=== PATIENT | female | born 1955 | race Caucasian/White ===

== ENCOUNTER 2020-12-18 11:11 | Emergency (ER) | payer OTHER ==
--- NOTE | 2020-12-18 12:16 | ER ---
Nurse's Notes [facility] Name: Jenifer Marinelli Age: 65 yrs Sex: Female : 1955 Arrival Date: 12/18/2020 Time: 11:13 Bed 23 Private MD: Diagnosis: Conjunctivitis Presentation: 12/18 11:26 Chief complaint: Patient states: my eyes have been bothering for a couple days, woke up iw this morning with crusting, feels like pink eye. Coronavirus screen: At this time, the client does not indicate any symptoms associated with coronavirus-19. Ebola Screen: Patient negative for fever greater than or equal to 101.5 degrees Fahrenheit, and additional compatible Ebola Virus Disease symptoms Patient denies exposure to infectious person. Patient denies travel to an Ebola-affected area in the 21 days before illness onset. No symptoms or risks identified at this time. Initial Sepsis Screen: Does the patient meet any 2 criteria? No. Patient's initial sepsis screen is negative. Does the patient have a suspected source of infection? No. Patient's initial sepsis screen is negative. Risk Assessment: Do you want to hurt yourself or someone else? Patient reports no desire to harm self or others. Onset of symptoms was December 16, 2020. 11:26 Method Of Arrival: Ambulatory iw 11:26 Acuity: FATOUMATA 4 iw Triage Assessment: 12:10 General: Appears in no apparent distress. Behavior is calm. iw Historical: - Allergies: 11:28 PENICILLINS; iw - Home Meds: 11:28 Trazodone Oral [Active]; Lamictal Oral [Active]; Wellbutrin Oral [Active]; iw - PMHx: 11:28 Hypertension; Depression; Anxiety; breast cancer; iw - PSHx: 11:28 Lumpectomy; iw - Immunization history:: Adult Immunizations up to date. - Social history:: Smoking status: Patient denies any tobacco usage or history of. Screenin:00 Abuse screen: Denies threats or abuse. Denies injuries from another. Nutritional iw screening: No deficits noted. Tuberculosis screening: No symptoms or risk factors identified. Fall Risk None identified. Assessment: 12:00 General: Appears in no apparent distress. Behavior is calm, cooperative. Pain: iw Complains of pain in right eye and left eye. Neuro: Level of Consciousness is awake, alert, obeys commands, Oriented to person, place, time, situation, Moves all extremities. Full function. Cardiovascular: Patient's skin is warm and dry. Respiratory: Respiratory effort is even, unlabored, Respiratory pattern is regular, symmetrical. EENT: Eyes with exudate noted from outer aspect of conjuctiva of right eye, iris of right eye, inner aspect of conjuctiva of right eye, outer aspect of conjuctiva of left eye, iris of left eye and inner aspect of conjunctiva of left eye. Derm: Skin is healthy with good turgor. Musculoskeletal: Range of motion: intact in all extremities. Vital Signs: 11:26 BP 132 / 83; Pulse 85; Resp 16; Temp 98.4; Pulse Ox 98% on R/A; Weight 68.04 kg; Height iw 5 ft. 4 in. (162.56 cm); 11:26 Body Mass Index 25.75 (68.04 kg, 162.56 cm) iw ED Course: 11:13 Patient arrived in ED. ag5 11:27 Triage completed. iw 11:28 Samia Miguel FNP-C is [facility]. kb 11:28 Jorge Youssef MD is Attending Physician. kb 11:50 Yane Rosa, ALYSSA is Primary Nurse. iw 12:00 Arm band placed on right wrist. iw 12:00 Patient has correct armband on for positive identification. iw 12:27 No provider procedures requiring assistance completed. Patient did not have IV access iw during this emergency room visit. Administered Medications: No medications were administered Outcome: 12:16 Discharge ordered by MD. kb 12:27 Discharged to home ambulatory. iw 12:27 Condition: good 12:27 Discharge instructions given to patient, Instructed on discharge instructions, follow up and referral plans. medication usage, Demonstrated understanding of instructions, follow-up care, medications, Prescriptions given X 1. 12:28 Patient left the ED. iw Signatures: Samia Miguel FNP-C FNP-Yane Bailey, RN RN Lita Aragon ag5
--- NOTE | 2020-12-18 12:16 | EDPHYS ---
Physician Documentation [facility] Name: Jenifer Marinelli Age: 65 yrs Sex: Female : 1955 Arrival Date: 12/18/2020 Time: 11:13 Bed 23 Private MD: ED Physician Jorge Youssef HPI: 12/18 12:14 This 65 yrs old Female presents to ER via Ambulatory with complaints of kb Redness of Eye, Eye Problem. 12:14 The patient is experiencing matting or discharge, redness, The patient sustained None. kb to both eyes, caused by an unknown mechanism. Onset: The symptoms/episode began/occurred 2 day(s) ago. Duration: the symptoms are continuous. Aggravated by nothing. Alleviated by eye drops. Associated signs and symptoms: Pertinent positives: None. Patient wears glasses, wears soft contacts. Severity of symptoms: At their worst the symptoms were mild in the emergency department the symptoms have improved moderately. The patient has experienced similar episodes in the past, a few times. The patient has not recently seen a physician. Pt reports she started getting pink eye in left eye, then right eye. Reports irritation, itching, redness, discharge and crusting this morning. Pt had some polymyxin eye drops at home so she started those and it has helped the symptoms. States she has had pink eye a few times before and it feels the exact same way. Historical: - Allergies: 11:28 PENICILLINS; iw - Home Meds: 11:28 Trazodone Oral [Active]; Lamictal Oral [Active]; Wellbutrin Oral [Active]; iw - PMHx: 11:28 Hypertension; Depression; Anxiety; breast cancer; iw - PSHx: 11:28 Lumpectomy; iw - Immunization history:: Adult Immunizations up to date. - Social history:: Smoking status: Patient denies any tobacco usage or history of. ROS: 12:09 Constitutional: Negative for fever, chills, and weight loss, Cardiovascular: Negative kb for chest pain, palpitations, and edema, Respiratory: Negative for shortness of breath, cough, wheezing, and pleuritic chest pain, Abdomen/GI: Negative for abdominal pain, nausea, vomiting, diarrhea, and constipation, MS/Extremity: Negative for injury and deformity, Skin: Negative for injury, rash, and discoloration, Neuro: Negative for headache, weakness, numbness, tingling, and seizure. 12:09 Eyes: Positive for itching, matting, redness. Exam: 12:13 Constitutional: This is a well developed, well nourished patient who is awake, alert, kb and in no acute distress. Head/Face: Normocephalic, atraumatic. Skin: Warm, dry with normal turgor. Normal color with no rashes, no lesions, and no evidence of cellulitis. MS/ Extremity: Pulses equal, no cyanosis. Neurovascular intact. Full, normal range of motion. Neuro: Awake and alert, GCS 15, oriented to person, place, time, and situation. Cranial nerves II-XII grossly intact. Motor strength 5/5 in all extremities. Sensory grossly intact. Cerebellar exam normal. Normal gait. 12:13 Eyes: Periorbital structures: appear normal, Pupils: equal, round, and reactive to light and accomodation, Extraocular movements: intact throughout, Conjunctiva: injected, in the right eye. Vital Signs: 11:26 BP 132 / 83; Pulse 85; Resp 16; Temp 98.4; Pulse Ox 98% on R/A; Weight 68.04 kg; Height iw 5 ft. 4 in. (162.56 cm); 11:26 Body Mass Index 25.75 (68.04 kg, 162.56 cm) iw MDM: 11:54 Patient medically screened. kb 12:08 Data reviewed: vital signs, nurses notes. Data interpreted: Pulse oximetry: on room air kb is 98 %. Interpretation: normal. Counseling: I had a detailed discussion with the patient and/or guardian regarding: the historical points, exam findings, and any diagnostic results supporting the discharge/admit diagnosis, the need for outpatient follow up, an opthalmologist, to return to the emergency department if symptoms worsen or persist or if there are any questions or concerns that arise at home. Administered Medications: No medications were administered Disposition: 17:31 Co-signature as Attending Physician, Jorge Youssef MD I agree with the assessment and kdr plan of care. Disposition: 12/18/20 12:16 Discharged to Home. Impression: Conjunctivitis. - Condition is Stable. - Discharge Instructions: Bacterial Conjunctivitis, Azfj-lh-Omid. - Prescriptions for Vigamox 0.5 % Ophthalmic Drops - instill 1 drop by OPHTHALMIC route every 8 hours for 7 days; 5 milliliter. - Medication Reconciliation Form, Thank You Letter, Antibiotic Education, Prescription Opioid Use form. - Follow up: Emergency Department; When: As needed; Reason: Worsening of condition. Follow up: Private Physician; When: 2 - 3 days; Reason: Recheck today's complaints, Continuance of care, Re-evaluation by your physician. Signatures: Samia Miguel FNP-C FNP-Jorge Ortiz MD MD kdr Yane Rosa RN RN iw Corrections: (The following items were deleted from the chart) 12:28 12:16 12/18/2020 12:16 Discharged to Home. Impression: Conjunctivitis. Condition is iw Stable. Forms are Medication Reconciliation Form, Thank You Letter, Antibiotic Education, Prescription Opioid Use. Follow up: Emergency Department; When: As needed; Reason: Worsening of condition. Follow up: Private Physician; When: 2 - 3 days; Reason: Recheck today's complaints, Continuance of care, Re-evaluation by your physician. kb
[2020-12-18 12:32] VITALS: BP 132/83; TEMP 98.4; O2SAT 98
== END 2020-12-18 12:28 | disposition home or self-care (01) ==
LOC: ER 11:11
DX: H10.9 Unspecified conjunctivitis (principal); F32.9 Major depressive disorder, single episode, unspecified; F41.9 Anxiety disorder, unspecified; Z85.3 Personal history of malignant neoplasm of breast; I10 Essential (primary) hypertension
CPT/HCPCS: 99282

== ENCOUNTER 2023-05-21 10:20 | Emergency (ER) | payer MEDICARE, OTHER ==
--- OUTSIDE RECORDS SUMMARY | 2023-05-21 10:23 | XMS REPORT | Continuity of Care Document ---
:1955 Author Organization [facility] t Address [address] [place] [address] Care Team Providers Name Role Phone Karen Franco Primary Care Physician Karen Franco Attending Clinician Unavailable Radiology Attending Clinician Unavailable RADIOLOGY Attending Clinician Unavailable SHANTI FINNEY Attending Clinician Unavailable Shanti Kidd Attending Clinician Jessica Godwin MD Attending Clinician JESSICA GODWIN Attending Clinician Unavailable Doctor Unassigned, [place] Attending Clinician Unavailable KAREN FRANCO Admitting Clinician Unavailable Payers Payer Name Policy Type Policy Number Effective Date Expiration Date FreshT ginny Zkatter [id number] 2022 (MEDICARE 00:00:00 REPLACEMENT HMO) Problems Condition Condition Condition Status Onset Resolution Last Treating Co mments Source Name Details Category Date Date Treatment Clinician Date No known No known Disease Unive rs active active ity of problems problems [facility] Allergies, Adverse Reactions, Alerts Allergy Allergy Status Severity Reaction(s) Onset Inactive Treating Comm ents Source Name Type Date Date Clinician Penicill Propensi Active Unknown - 2020-11 child Uni vers in ty to See comments 11-08 ity of adverse 00:00: [place] reaction 00 Medical [facility] [place] PENICILL DRUG Active Unknown-Cmnt 2020-11 Un emily IN INGREDI 11-08 ity of 00:00: [place] [address] Medical [place] Social History Social Habit Start Date Stop Date Quantity Comments Source Exposure to 2022-06-05 2022-06-15 Not sure [facility] SARS-CoV-2 (event) 00:00:00 13:33:00 Medica l Branch Sex Assigned [birth year] [facility] [place] 00:00:00 00:00:00 Medical Branch Smoking Status Start Date Stop Date Source Tobacco [facility]ations Ordered Filled Start Stop Current Ordering Indication Dosage Frequency Signature Comments Components Source Medication Medication Date Date Medication? Clinician (SIG) Name Name No known 2020-11 No Univers medications 1-04 ity of 08:35: [address] Branch No known 2020-11 No Univers medications -04 ity of 08:35: [address] Branch No known 2020-11 No No known Unive rs medications 1-04 medication it y of 08:35: s [address] No known 2020-11 No No known Unive rs medications - medication it y of 08:35: s [address] No known 2020-11 No No known Unive rs medications - medication it y of 08:35: s [address] Vital Signs Vital Name Observation Time Observation Value Comments Source Systolic blood 2021-09-11 13:38:00 143 mm[Hg] Univer sity of pressure [facility] Diastolic blood 2021-09-11 13:38:00 78 mm[Hg] Unive rsity of [facility] Heart rate 2021-09-11 13:38:00 85 /min [facility] Respiratory rate 2021-09-11 13:38:00 20 /min Univ [facility] Body height 2021-09-11 13:38:[address] [facility] Body weight 2021-09-11 13:38:[address] [facility] BMI 2021-09-11 13:38:00 24.72 kg/m2 [facility] Oxygen saturation in 2021-09-11 13:38:00 98 /min [facility] Arterial blood by [facility] Pulse oximetry Branch Procedures Procedure Date / Time Performed Performing Clinician Nikki gusman DEXA AXIAL (HIP AND 2022-06-29 16:44:11 Requisition, Paper [facility] SPINE) Medical [place] XR CERVICAL SPINE 2 2022-06-29 16:31:03 Yasmin Davies [facility] Branch Encounters Start End Encounter Admission Attending Care Care Encounter Source Date/Time Date/Time Type Type Clinicians Facility Department ID 2023-05-19 Outpatient Franco, STLMLC STLMLC [id number] Common 14:45:01 Karen [id number] [facility] 2023-05-12 Outpatient Franco, STLMLC STLMLC [id number] Common 11:33:00 Karen 87971 [facility] 2023-04-27 Outpatient Franco, STLMLC STLMLC [id number] Common 13:19:04 Karen [address]1308 [facility] 2023-04-23 Outpatient Franco, STLMLC STLMLC [id number] Common 09:18:01 Karen 82752 [facility] 2023-02-09 Outpatient Franco, STLMLC STLMLC [id number] Common 12:59:01 Karen [address] [facility] 2022-11-25 Outpatient Franco, STLMLC STLMLC [id number] Common 15:53:02 Karen [address]4624 [facility] 2022-11-18 Outpatient Franco, STLMLC STLMLC [id number] Common 13:29:01 Karen 90124 [facility] 2022-11-16 Outpatient Franco, STLMLC STLMLC [id number] Common 13:34:02 Karen 05834 [facility] 2022-08-26 Outpatient Franco, STLMLC STLMLC [id number] Common 08:59:02 Karen 18231 [facility] 2022-06-05 Outpatient Franco, STLMLC STLMLC [id number] Common 09:08:02 Karen [facility] 2022-06-03 Outpatient Franco, STLMLC STLMLC [id number] Common 14:52:02 Karen [facility] 2022-06-02 Outpatient Franco, STLMLC STLMLC [id number] Common 13:35:01 Karen [facility] 2022-03-16 Outpatient Franco, STLMLC STLMLC [id number] Common 10:40:02 Karen [facility] 2022-03-02 Outpatient Franco, STLMLC STLMLC [id number] Common 16:36:03 Karen [facility] 2021-12-03 Outpatient Franco, STLMLC STLMLC [id number] Common 14:37:41 Karen [facility] 2021-12-03 Outpatient Franco, STLMLC STLMLC [id number] Common 14:31:30 Karen [facility] 2023-03-13 2023-03-13 Outpatient [facility] [id number] [facility]oted 00:00:00 00:00:00 [id number] Medica l Group 2022-08-25 2022-08-25 Outpatient [facility] [id number] [facility] 00:00:00 00:00:00 [id number] Medica l Group 2022-06-29 2022-06-29 [facility] Radiology [facility] [id number] Univers 11:16:21 23:59:00 Encounter [place] [id number] ity of [place] [id number] [facility] [id number] [facility] [address] Branch 2022-06-29 2022-06-29 [facility] Radiology [facility] [id number] Univers 11:15:10 11:15:10 Encounter [place] [id number] ity of [place] [id number] [facility] [id number] [facility] 807 Branch 2022-06-29 2022-06-29 Outpatient R RADIOLOGY [facility] [id number] Univers 11:16:36 11:14:00 ity of [facility] 2022-06-29 2022-06-29 [facility] Radiology [facility] [id number] Univers 11:00:00 11:14:00 Encounter [place] [id number] ity of [place] [id number] [facility] [id number] [facility] 800 Branch 2021-09-11 2021-09-11 Outpatient Fransico FINNEY [facility] [id number] Univers 08:45:00 09:00:21 SHANTI christina [facility] 2021-09-11 2021-09-11 [facility] [id number] Univers 08:30:27 08:45:27 Visit Shanti [facility] [id number] it y of [place] [id number] Reid as MAGGIE?BLEA [phone] Pa maged FRAIRE [address] [place] [address] OFFICE [facility] 2021-09-11 2021-09-11 Outpatient Fransico FINNEY [facility] [id number] Univers 08:45:00 08:45:00 SHANTI anders [facility] 2021-09-10 2021-09-10 [facility] [id number] Univers 00:00:00 00:00:00 [facility] [employer] [id number] it y of [place] [id number] Reid as MAGGIE?BLEA [id number] Pa maged FRAIRE [address] [place] [address] OFFICE [facility] 2021-09-08 2021-09-08 [facility] [id number] Univers 14:45:00 15:22:06 JESSICA christina [facility] 2021-09-08 2021-09-08 [facility] [id number] Univers 14:38:16 15:22:06 Visit Jessica L [employer] [id number] it y of [place] [id number] Reid as MAGGIE?BLEA [phone] Pa maged FRAIRE [address] [place] [address] OFFICE [facility] 2021-09-08 2021-09-08 [facility] [id number] Univers 00:00:00 00:00:00 Jessica Corbett [employer] [id number] it y of [place] [id number] Reid as MAGGIE?BLEA [id number] Pa maged FRAIRE [address] [place] [address] OFFICE [facility] 2021-09-08 2021-09-08 Orders Doctor BLAKE [id number] Univers 00:00:00 00:00:00 Only Unassigned, ISMAEL [id number] ity of [place] [facility] [id number] Reid as [phone] [facility] 009 Branch Results This patient has no known results.
[2023-05-21 11:02] LABS: Absolute Lymphocytes (CBC) 1.2 K/uL (0.7-4.9); Hematocrit 38.6 % (36.0-45.0); Lymphocytes % 27.4 % (15.3-44.8); MCV 90.5 fL (80-100); MPV 6.8 fL (7.6-11.3); RBC Red Blood Cell Count 4.27 M/uL (3.86-4.86)
[2023-05-21] MEDS ORDERED: FOLIC ACID 5 MG/ML VIAL ONE (11:07)
[2023-05-21] MEDS ORDERED: NA CHLORIDE 0.9% 1,000 ML ONE (11:07)
[2023-05-21 11:12] LABS: Specific Gravity 1.021 (1.005-1.030); Urine Bilirubin NEGATIVE (Negative); Urine Blood Negative (Negative); Urine Clarity Clear (Clear); Urine Color Light-Yellow (Yellow); Urine Glucose NEGATIVE (Negative); Urine Protein NEGATIVE (Negative); Urine Urobilinogen Normal (Normal); Urine pH 6.5 (5.0-7.0)
[2023-05-21 11:22] LABS: ALT/SGPT 19 U/L (13-56); AST/SGOT 15 U/L (15-37); Alkaline Phosphatase 59 U/L (45-117); BUN Blood Urea Nitrogen 16 mg/dL (7-18); Bicarbonate 27 mEq/L (21-32); Bilirubin Total 0.4 mg/dL (0.2-1.0); Glomerular Filtration Rate 62 ml/min (=/>90); Glucose Level 88 mg/dL (74-106); Magnesium 2.1 mg/dL (1.6-2.4); NT PRO-BNP 115 pg/mL (<125); Potassium 3.6 mEq/L (3.5-5.1); Protein, Total 7.4 g/dL (6.4-8.2); Sodium Level 136 mEq/L (136-145); Troponin High Sensitivity 5.4 pg/mL (<58.9)
--- NOTE | 2023-05-21 11:37 | RAD REPORT ---
EXAM DESCRIPTION: CT - Head Brain Wo Cont - 05/21/2023 11:25 am CLINICAL HISTORY: Dizziness;TIA COMPARISON: Head angio dated 05/21/2023 TECHNIQUE: Noncontrast head CT images were obtained without IV contrast. Multiplanar reformats were generated and reviewed. All CT scans are performed using dose optimization technique as appropriate and may include automated exposure control or mA/KV adjustment according to patient size. FINDINGS: No intracranial hemorrhage, mass, or edema. Midline structures are unremarkable. Normal ventricular caliber for age. Quintana-white matter differentiation is preserved, without evidence of acute infarct. No abnormal extra- axial fluid collections. Mastoid air cells and visualized portions of the paranasal sinuses are clear. No acute bony findings. IMPRESSION: No evidence of an acute intracranial process.
--- NOTE | 2023-05-21 11:39 | RAD REPORT ---
EXAM DESCRIPTION: CT - Neck Angio - 05/21/2023 11:25 am CLINICAL HISTORY: HEADACHE COMPARISON: Head angio dated 05/21/2023; Head Brain Wo Cont dated 05/21/2023 TECHNIQUE: Axial CT angiography images of the head was performed with multiplanar and maximum intens ity projection reconstructions. Images performed following intravenous administration of 100mL Isovue 370. All CT scans are performed using dose optimization technique as appropriate and may include automated exposure control or mA/KV adjustment according to patient size. Quantification of carotid stenosis, if any, is performed according to NASCET criteria. FINDINGS: A left aortic arch is identified with normal three vessel configuration of the great vesse ls. No significant flow abnormality is seen of the common carotid bilaterally. No significant stenosis is identified involving the cervical segments of both internal carotid arteri es. Normal flow is seen within both vertebral arteries, although the proximal right V1 segment is obscure d by adjacent dense venous contrast. IMPRESSION: No significant flow abnormality of the neck vessels is identified. CAROTID STENOSIS REFERENCE USING NASCET CRITERIA: % ICA stenosis = (1 - narrowest ICA diameter/diameter of distal cervical ICA) x 100. Mild - <50% stenosis. Moderate - 50-69% stenosis. Severe - 70-94% stenosis. Near occlusion - 95-99% stenosis. Occluded - 100% stenosis.
--- NOTE | 2023-05-21 11:43 | RAD REPORT ---
EXAM DESCRIPTION: CT - Head angio - 05/21/2023 11:25 am CLINICAL HISTORY: SLURRED SPEECH COMPARISON: No comparisons TECHNIQUE: Axial CT angiography images of the head was performed with multiplanar and maximum intens ity projection reconstructions. Images performed following intravenous administration of 100mL Isovue 370. All CT scans are performed using dose optimization technique as appropriate and may include automated exposure control or mA/KV adjustment according to patient size. FINDINGS: No evidence of large vessel occlusion. No evidence of aneurysm or dissection flap is detec jakob. Focal moderate stenosis along the distal left M1 segment, series 605, image 108. No other flow-l imiting stenosis or vascular malformation identified. Antegrade flow is seen in the vertebral arteries. The vertebral arteries are codominant. The visualized dural venous sinuses are grossly patent. IMPRESSION: Focal moderate stenosis of the distal left M1 segment, favored to relate to noncalcified atherosclerotic plaque. No evidence of large vessel occlusion or other flow-limiting stenosis.
[2023-05-21] MEDS ORDERED: ATORVASTATIN 20 MG TAB ONE (12:05)
[2023-05-21] MEDS ORDERED: ASPIRIN 81 MG CHEWABLE TABLET ONE (12:05)
--- NOTE | 2023-05-21 12:09 | RAD REPORT ---
EXAM DESCRIPTION: MRI - Brain Wo Cont - 05/21/2023 11:45 am CLINICAL HISTORY: DIZZINESS COMPARISON: Head CT and CT angiogram of the same day TECHNIQUE: Multiplanar multisequence MRI of the brain performed without IV contrast. FINDINGS: No evidence of acute infarct or other diffusion signal abnormality. No evidence of acute intracranial hemorrhage or abnormal extra-axial fluid collections. Ventricular caliber within normal for age. Midline structures are unremarkable. No significant white matter signal abnormalities. No mass effect or midline shift. Major vascular flow voids are preserved. Mastoid air cells and paranasal sinuses are clear. IMPRESSION: No acute intracranial process. No evidence of ventriculomegaly or mass effect.
[2023-05-21 12:21] LABS: Bilirubin Direct < 0.1 mg/dL (0-0.2); Bilirubin Indirect, Calculated ND mg/dL (0.2-0.8)
--- NOTE | 2023-05-21 12:32 | RAD REPORT ---
EXAM DESCRIPTION: Christopher Single View05/21/2023 12:23 pm CLINICAL HISTORY: COUGH COMPARISON: No comparisons TECHNIQUE: Portable AP view of the chest. FINDINGS: The lungs are clear. Mild left basilar atelectasis. No pneumothorax or effusion. The cardi omediastinal contours are unremarkable. IMPRESSION: No acute cardiopulmonary process.
--- NOTE | 2023-05-21 12:42 | EDPHYS ---
Physician Documentation [facility] Name: Jenifer Marinelli Age: 68 yrs Sex: Female : 1955 Arrival Date: 05/21/2023 Time: 10:20 Bed 6 Private MD: [facility] ED Physician Gino Oquendo HPI: 05/21 11:19 This 68 yrs old Female presents to ER via Ambulatory with complaints of roselia Dizziness, Confusion. 11:19 The patient presents with dizziness, lightheadedness, a sense of confusion. roselia 11:19 Onset: The symptoms/episode began/occurred 2 day(s) ago. Context: occurred at home, roselia occurred while the patient was walking. Modifying factors: The symptoms are alleviated by nothing, the symptoms are aggravated by nothing. Associated signs and symptoms: The patient has no apparent associated signs or symptoms. The patient presents to the emergency department with weakness of the a speech or higher order brain function problem, aphasia. Context: occurred at home, occurred while the patient was walking. Associated signs and symptoms: The patient has no apparent associated signs or symptoms. Severity of symptoms: At their worst the symptoms were mild in the emergency department the symptoms are unchanged. Patient's baseline: Neuro: alert and fully oriented. Current symptoms: Currently, the patient is not experiencing any symptoms, the patient feels back to baseline. Historical: - Allergies: 10:37 PENICILLINS; aa5 - PMHx: 10:37 Anxiety; breast cancer; Depression; Hypertension; aa5 - Immunization history:: Adult Immunizations unknown. - Social history:: Smoking status: Patient denies any tobacco usage or history of. - Family history:: not pertinent. ROS: 11:19 Constitutional: Negative for fever, chills, and weight loss, Eyes: Negative for injury, roselia pain, redness, and discharge, ENT: Negative for injury, pain, and discharge, Neck: Negative for injury, pain, and swelling, Cardiovascular: Negative for chest pain, palpitations, and edema, Respiratory: Negative for shortness of breath, cough, wheezing, and pleuritic chest pain, Abdomen/GI: Negative for abdominal pain, nausea, vomiting, diarrhea, and constipation, Back: Negative for injury and pain, : Negative for injury, bleeding, discharge, and swelling, MS/Extremity: Negative for injury and deformity, Skin: Negative for injury, rash, and discoloration, Psych: Negative for depression, anxiety, suicide ideation, homicidal ideation, and hallucinations, Allergy/Immunology: Negative for hives, rash, and allergies, Endocrine: Negative for neck swelling, polydipsia, polyuria, polyphagia, and marked weight changes, Hematologic/Lymphatic: Negative for swollen nodes, abnormal bleeding, and unusual bruising. 11:19 Neuro: Positive for speech changes, weakness. Exam: 11:19 Constitutional: This is a well developed, well nourished patient who is awake, alert, roselia and in no acute distress. Head/Face: Normocephalic, atraumatic. Eyes: Pupils equal round and reactive to light, extra-ocular motions intact. Lids and lashes normal. Conjunctiva and sclera are non-icteric and not injected. Cornea within normal limits. Periorbital areas with no swelling, redness, or edema. ENT: Nares patent. No nasal discharge, no septal abnormalities noted. Tympanic membranes are normal and external auditory canals are clear. Oropharynx with no redness, swelling, or masses, exudates, or evidence of obstruction, uvula midline. Mucous membranes moist. Chest/axilla: Normal chest wall appearance and motion. Nontender with no deformity. No lesions are appreciated. Cardiovascular: Regular rate and rhythm with a normal S1 and S2. No gallops, murmurs, or rubs. Normal PMI, no JVD. No pulse deficits. Respiratory: Lungs have equal breath sounds bilaterally, clear to auscultation and percussion. No rales, rhonchi or wheezes noted. No increased work of breathing, no retractions or nasal flaring. Abdomen/GI: Soft, non-tender, with normal bowel sounds. No distension or tympany. No guarding or rebound. No evidence of tenderness throughout. Back: No spinal tenderness. No costovertebral tenderness. Full range of motion. Female : Normal external genitalia. Skin: Warm, dry with normal turgor. Normal color with no rashes, no lesions, and no evidence of cellulitis. 11:19 Neck: Exam negative for acute changes, obvious evidence of injury or deformity, Brudzinski's sign, crepitus, ecchymosis, Kernig's sign, lymphadenopathy, meningismus, nuchal rigidity, rash. Vital Signs: 10:23 BP 140 / 73; Pulse 75; Resp 18 S; Temp 97.3(TE); Pulse Ox 99% on R/A; Weight 68.04 kg aa5 (R); Height 5 ft. 4 in. (R); 12:46 BP 132 / 83; Pulse 72; Resp 18; Pulse Ox 98% on R/A; mb9 14:11 BP 124 / 78; Pulse 72; Resp 18; Temp 98; Pulse Ox 97% on R/A; ph 10:23 Body Mass Index 25.75 (68.04 kg, 162.56 cm) aa5 NIH Stroke Scale Scores: 11:19 NIHSS Score: 0 roselia MDM: 10:31 Patient medically screened. roselia 11:29 Differential diagnosis: cardiac arrhythmia, CVA, generalized weakness, hypovolemia, roselia idiopathic dizziness, near-syncope, TIA. Data reviewed: vital signs, nurses notes, lab test result(s), EKG, radiologic studies, CT scan, MRI, plain films. Consideration of Admission/Observation Escalation of care including admission/observation considered. I considered the following discharge prescriptions or medication management in the emergency department Medications were administered in the Emergency Department. See MAR. Test considered but Not performed: Ultrasound no carotid doppler. Care significantly affected by the following chronic conditions: Hypertension, breast ca, depression, anxiety. Counseling: I had a detailed discussion with the patient and/or guardian regarding: the historical points, exam findings, and any diagnostic results supporting the discharge/admit diagnosis, lab results, radiology results. 05/21 10:35 Order name: Basic Metabolic Panel; Complete Time: 12:40 roselia 05/21 10:35 Order name: CBC with Diff; Complete Time: 11:45 roselia 05/21 10:35 Order name: LFT's; Complete Time: 12:40 roselia 05/21 10:35 Order name: Magnesium; Complete Time: 12:40 roselia 05/21 10:35 Order name: NT PRO-BNP; Complete Time: 12:40 roselia 05/21 10:35 Order name: PT-INR roselia 05/21 10:35 Order name: Troponin HS; Complete Time: 12:40 roselia 05/21 10:35 Order name: Urinalysis w/ reflexes; Complete Time: 11:45 roselia 05/21 11:26 Order name: CREATININE WHOLE BLOOD; Complete Time: 11:45 EDMS 05/21 11:50 Order name: Lipid Profile; Complete Time: 12:40 [facility] 05/21 10:35 Order name: XRAY Chest (1 view); Complete Time: 12:40 [facility] 05/21 10:35 Order name: CT Head Brain wo Cont; Complete Time: 11:45 [facility] 05/21 10:35 Order name: CT Neck Angio; Complete Time: 11:45 [facility] 05/21 11:14 Order name: Head angio; Complete Time: 11:45 [facility] 05/21 11:39 Order name: Brain Wo Cont; Complete Time: 12:40 [facility] 05/21 13:01 Order name: Echo w/ Doppler [facility] 05/21 10:35 Order name: EKG; Complete Time: 10:36 [facility] 05/21 10:35 Order name: Cardiac monitoring; Complete Time: 10:39 [facility] 05/21 10:35 Order name: EKG - Nurse/Tech; Complete Time: 10:43 [facility] 05/21 10:35 Order name: IV Saline Lock; Complete Time: 10:53 [facility] 05/21 10:35 Order name: Labs collected and sent; Complete Time: 10:53 [facility] 05/21 10:35 Order name: O2 Per Protocol; Complete Time: 10:39 [facility] 05/21 10:35 Order name: O2 Sat Monitoring; Complete Time: 10:39 [facility] Administered Medications: 11:00 Drug: NS 0.9% IV 1000 ml Route: IV; Rate: 1 bolus; Site: right antecubital; ss 11:00 Drug: foLIC Acid IVPB 1 mg Route: IVPB; Site: right antecubital; ss 12:04 Drug: Aspirin PO Chewable Tablet 324 mg Route: PO; ss 13:07 Follow up: Response: No adverse reaction mb9 12:04 Drug: Atorvastatin PO 20 mg Route: PO; ss 13:07 Follow up: Response: No adverse reaction mb9 13:07 Drug: Meclizine PO 25 mg Route: PO; mb9 13:07 Drug: Clopidogrel PO 75 mg Route: PO; mb9 Disposition Summary: 05/21/23 13:43 Discharge Ordered Location: Home(05/21/23 13:43) roselia Problem: new(05/21/23 13:43) roselia Symptoms: have improved(05/21/23 13:43) roselia Condition: Stable(07/14/23 13:43) roselia Diagnosis - Weakness(05/21/23 13:43) roselia - Altered mental status, unspecified(05/21/23 13:43) roselia - Other fatigue roselia Followup: roselia - With: - When: 2 - 3 days - Reason: Recheck today's complaints, Continuance of care, Re-evaluation by your physician Followup: roselia - With: - When: 2 - 3 days - Reason: Recheck today's complaints, Re-evaluation by your physician Discharge Instructions: - Discharge Summary Sheet roselia - Confusion roselia - Fat and Cholesterol Restricted Eating Plan roselia - Weakness roselia - Fatigue roselia - Weakness, [id number] roselia - Aspirin and Your Heart roselia - Deconditioning roselia Forms: - Medication Reconciliation Form roselia - Thank You Letter roselia - Antibiotic Education roselia - Prescription Opioid Use roselia - Patient Portal Instructions [facility] Prescriptions: - Lipitor 10 mg Oral Tablet - take 1 tablet by ORAL route once daily; 30 tablet; Refills: 0, Product [facility] Selection Permitted - Folic Acid 1 mg Oral Tablet - take 1 tablet by ORAL route once daily; 30 tablet; Refills: 0, Product roselia Selection Permitted NIH Stroke Scale - NIH Stroke Score Date: 05/21/2023 Time: 11:19 Total Score = 0 10. Dysarthria (speech clarity - read or repeat words) - 0(Normal) 11. Extinction and Inattention (visual/tactile/auditory/spatial/personal) - 0(No abnormality) 1a. Level of Consciousness (LOC) - 0(Alert) 1b. Level of Consciousness (LOC) (Month \T\ Age) - 0(Both) 1c. LOC Commands (Open \T\ Closes Eyes/Assistant Public Defender) - 0(Both) 2. Best Gaze (Lateral Gaze Paresis) - 0(Normal) 3. Visual Field Loss - 0(No visual loss) 4. Facial Palsy - 0(Normal) 5a. Left Arm: Motor (10-second hold) - 0(No drift) 5b. Right Arm: Motor (10-second hold) - 0(No drift) 6a. Left Leg: Motor (5-second hold - always test supine) - 0(No drift) 6b. Right Leg: Motor (5-second hold - always test supine) - 0(No drift) 7. Limb Ataxia (finger/nose \T\ heel/sheriff - test with eyes open) - 0(Absent) 8. Sensory Loss (pinprick arms/legs/face) - 0(Normal) 9. Best Language: Aphasia (description/naming/reading) - 0(No aphasia) Initials: roselia Signatures: Dispatcher [employer] EDGino Birmingham MD MD cha Calderon, Audri, RN RN aa5 Eunice Tarango, ALYSSA RN ss Sue Ordaz RN RN mb9 Corrections: (The following items were deleted from the chart) 11:13 10:36 Head Angio+CT.RAD.BRZ ordered. EDMS EDMS 11:39 10:36 MR STROKE PROTOCOL+MRI.RAD.BRZ ordered. EDMS EDMS 12:55 12:42 Home roselia roselia 12:55 12:42 new roselia roselia 12:55 12:42 have improved roselia roselia 12:55 12:42 Stable roselia roselia 12:55 12:42 Weakness roselia roselia 12:55 12:42 Altered mental status, unspecified roselia roselia 12:55 12:42 Hyperlipidemia, unspecified roselia roselia 13:43 13:00 Observation roselia roselia 13:43 13:00 ReavesAndrea mishraammad roselia roselia 13:43 13:00 Telemetry/MedSurg (observation) rsoelia roselia 13:43 13:00 Fair roselia roselia 13:43 13:00 new roselia roselia 13:43 13:00 have improved roselia roselia 13:43 13:00 Standard roselia roselia 13:43 13:00 roselia roselia 13:43 13:00 Dizziness and giddiness roselia roselia 13:43 13:00 Aphasia - resolved roselia roselia 13:43 13:00 Weakness roselia roselia 13:43 13:00 Hyperlipidemia, unspecified roselia roselia
--- NOTE | 2023-05-21 12:42 | ER ---
Nurse's Notes [facility] Name: Jenifer Marinelli Age: 68 yrs Sex: Female : 1955 Arrival Date: 05/21/2023 Time: 10:20 Bed 6 Private MD: Edgardo Franco Diagnosis: Weakness;Altered mental status, unspecified;Other fatigue Presentation: 05/21 10:23 Chief complaint: Patient states: "Wednesday my special needs kid had an outburst and it aa5 was just too much, I noticed I was slurring my words and I felt off balance". Pt reports trouble remembering, feeling off balance, and feeling lightheaded since Wednesday. Speech is clear, pt is A\\T\\O x 4, terminal operations supervisor equal, no facial droop noted, no arm drift noted. 10:23 Onset of symptoms was May 2023. aa5 10:23 Acuity: FATOUMATA 2 aa5 10:23 Method Of Arrival: Ambulatory aa5 10:23 Coronavirus screen: At this time, the client does not indicate any symptoms associated aa5 with coronavirus-19. Ebola Screen: Patient denies travel to an Ebola-affected area in the 21 days before illness onset. Initial Sepsis Screen: Does the patient meet any 2 criteria? No. Patient's initial sepsis screen is negative. Does the patient have a suspected source of infection? No. Patient's initial sepsis screen is negative. Risk Assessment: Do you want to hurt yourself or someone else? Patient reports no desire to harm self or others. Historical: - Allergies: 10:37 PENICILLINS; aa5 - PMHx: 10:37 Anxiety; breast cancer; Depression; Hypertension; aa5 - Immunization history:: Adult Immunizations unknown. - Social history:: Smoking status: Patient denies any tobacco usage or history of. - Family history:: not pertinent. Screenin:54 [facility] ED Fall Risk Assessment (Adult) History of falling in the last 3 months, ss including since admission No falls in past 3 months (0 pts). Abuse screen: Denies threats or abuse. Denies injuries from another. Nutritional screening: No deficits noted. Tuberculosis screening: No symptoms or risk factors identified. Assessment: 10:54 General: Appears in no apparent distress. comfortable, well groomed, Behavior is calm, ss cooperative, Denies fever. Pain: Denies pain. Neuro: Level of Consciousness is awake, alert, obeys commands, Oriented to person, place, time, situation, Weatherization Administrator are equal bilaterally Moves all extremities. Full function Gait is steady, Speech is normal, Facial symmetry appears normal, Pupils are PERRLA. Cardiovascular: Capillary refill < 3 seconds is brisk in bilateral fingers. Respiratory: Airway is patent Respiratory effort is even, unlabored, Respiratory pattern is regular, symmetrical. GI: Patient currently denies diarrhea, nausea, vomiting. Derm: Skin is intact, is healthy with good turgor, Skin is pink, warm \\T\\ dry. normal. 11:05 Reassessment: PT to CT and MRI at this time VIA stretcher. ss 11:52 Reassessment: Pt is back from MRI at this time. NAD noted. ss 12:47 Reassessment: No changes from previously documented assessment. Patient and/or family mb9 updated on plan of care and expected duration. Pain level reassessed. Patient is alert, oriented x 3, equal unlabored respirations, skin warm/dry/pink. 12:53 Reassessment: Pt reports "I'm feeling dizzy and lightheaded again and sort of blurry jl7 vision." Dr. Oquendo at bedside discussing results and POC. 14:10 Reassessment: Patient appears in no apparent distress at this time. Patient and/or ph family updated on plan of care and expected duration. Pain level reassessed. Patient is alert, oriented x 3, equal unlabored respirations, skin warm/dry/pink. Pt d/c home. Vital Signs: 10:23 BP 140 / 73; Pulse 75; Resp 18 S; Temp 97.3(TE); Pulse Ox 99% on R/A; Weight 68.04 kg aa5 (R); Height 5 ft. 4 in. (R); 12:46 BP 132 / 83; Pulse 72; Resp 18; Pulse Ox 98% on R/A; mb9 14:11 BP 124 / 78; Pulse 72; Resp 18; Temp 98; Pulse Ox 97% on R/A; ph 10:23 Body Mass Index 25.75 (68.04 kg, 162.56 cm) aa5 NIH Stroke Scale Scores: 11:19 NIHSS Score: 0 roselia ED Course: 10:22 Patient arrived in ED. mr 10:23 Edgardo Franco DO is Private Physician. mr 10:23 Arm band placed on Patient placed in an exam room, on a stretcher. aa5 10:31 Gino Oquendo MD is Attending Physician. roselia 10:36 Triage completed. aa5 10:42 Jasmina Kerns, RN is Primary Nurse. ph 10:45 Patient has correct armband on for positive identification. Placed in gown. Bed in low mm9 position. Call light in reach. Side rails up X 1. Warm blanket given. Client placed on continuous cardiac and pulse oximetry monitoring. NIBP monitoring applied. precision millwright on. Pulse ox on. NIBP on. 10:45 Missed attempt(s): 20 gauge in right forearm. mm9 10:46 EKG done, by ED staff, reviewed by Gino Oquendo MD. mm9 10:54 Inserted saline lock: 22 gauge in right antecubital area, using aseptic technique. ss Blood collected. 11:26 CT Head Brain wo Cont In Process Unspecified. EDMS 11:26 CT Neck Angio In Process Unspecified. EDMS 11:26 Head angio In Process Unspecified. EDMS 11:39 Brain Wo Cont In Process Unspecified. EDMS 12:25 XRAY Chest (1 view) In Process Unspecified. EDMS 12:41 Edgardo Franco DO is Referral Physician. roselia 12:41 Abhilash Bullock MD is Referral Physician. roselia 12:56 Aziza Reaves MD is Hospitalizing Provider. roselia 13:43 Edgardo Franco DO is Referral Physician. roselia 13:43 Abhilash Bullock MD is Referral Physician. roselia 14:12 No provider procedures requiring assistance completed. IV discontinued, intact, ph bleeding controlled, No redness/swelling at site. Pressure dressing applied. 14:13 Provided Education on: medication usage and side effects. ph Administered Medications: 11:00 Drug: NS 0.9% IV 1000 ml Route: IV; Rate: 1 bolus; Site: right antecubital; ss 11:00 Drug: foLIC Acid IVPB 1 mg Route: IVPB; Site: right antecubital; ss 12:04 Drug: Aspirin PO Chewable Tablet 324 mg Route: PO; ss 13:07 Follow up: Response: No adverse reaction mb9 12:04 Drug: Atorvastatin PO 20 mg Route: PO; ss 13:07 Follow up: Response: No adverse reaction mb9 13:07 Drug: Meclizine PO 25 mg Route: PO; mb9 13:07 Drug: Clopidogrel PO 75 mg Route: PO; mb9 Medication: 10:54 VIS not applicable for this client. ss Outcome: 12:42 Discharge ordered by . roselia 13:00 Decision to Hospitalize by Provider. roselia 13:43 Discharge ordered by MD. roselia 14:12 Discharged to home ambulatory. ph 14:12 Condition: good 14:12 Discharge instructions given to patient, Instructed on discharge instructions, follow up and referral plans. medication usage, Demonstrated understanding of instructions, follow-up care, medications, Prescriptions given X 2. 14:13 Patient left the ED. ph NIH Stroke Scale - NIH Stroke Score Date: 05/21/2023 Time: 11:19 Total Score = 0 10. Dysarthria (speech clarity - read or repeat words) - 0(Normal) 11. Extinction and Inattention (visual/tactile/auditory/spatial/personal) - 0(No abnormality) 1a. Level of Consciousness (LOC) - 0(Alert) 1b. Level of Consciousness (LOC) (Month \\T\\ Age) - 0(Both) 1c. LOC Commands (Open \\T\\ Closes Eyes/Pet Feeder) - 0(Both) 2. Best Gaze (Lateral Gaze Paresis) - 0(Normal) 3. Visual Field Loss - 0(No visual loss) 4. Facial Palsy - 0(Normal) 5a. Left Arm: Motor (10-second hold) - 0(No drift) 5b. Right Arm: Motor (10-second hold) - 0(No drift) 6a. Left Leg: Motor (5-second hold - always test supine) - 0(No drift) 6b. Right Leg: Motor (5-second hold - always test supine) - 0(No drift) 7. Limb Ataxia (finger/nose \\T\\ heel/sheriff - test with eyes open) - 0(Absent) 8. Sensory Loss (pinprick arms/legs/face) - 0(Normal) 9. Best Language: Aphasia (description/naming/reading) - 0(No aphasia) Initials: [facility] Signatures: Dispatcher [employer] EDGino Birmingham MD MD cha Rivera, Jojo Jacobson, RN RN aa5 Tarango, EuniceALYSSA suarez RN, Patricia, RN RN Rose Marie Judd RN RN jl7 Sugar Pringle mm Sue Ordaz RN RN mb9 Corrections: (The following items were deleted from the chart) 11:13 10:58 In radiology for Head Angio+CT.RAD.ROISTA. EDMS EDMS
[2023-05-21] MEDS ORDERED: CLOPIDOGREL 75 MG TABLET ONE (13:15)
[2023-05-21] MEDS ORDERED: MECLIZINE HCL 12.5 MG TAB ONE (13:15)
[2023-05-21 13:20] LABS: Protime INR ND
--- NOTE | 2023-05-21 13:36 | P.PN ---
Subjective Date of Service: 05/21/23 Chief Complaint: Slurred speech with imbalance Is 68 years of age started having problems on Wednesday complaining of slurred speech shaky thoughts felt foggy and patient felt foggy loss of balance disoriented call Dr. Franco's office and was advised to come to the emergency room/patient had an extensive work-up done in the emergency room at the time of my evaluation around 130 patient is alert oriented responsive no new complaints Review of Systems 10-point ROS is otherwise unremarkable Physical Examination - Vital Signs Temperature: 97.3 F Blood Pressure: 140/73 Pulse: 75 Respirations: 18 Pulse Ox (%): 99 - Physical Exam General: Alert, Oriented x3 HEENT: Atraumatic Neck: Supple Respiratory: Clear to auscultation bilaterally Gastrointestinal: Normal bowel sounds, Soft and benign Neurological: Normal gait, Sensation intact, Cranial nerves 3-12 intact - Studies Laboratory Data (last 24 hrs) 05/21/23 10:52: Triglycerides 74, Cholesterol 234 H, HDL Cholesterol 61 H, Cholesterol/HDL Ratio 3.84 05/21/23 10:52: PT ND, INR ND 05/21/23 10:52: WBC 4.20 L, Hgb 12.6, Hct 38.6, Plt Count 315 05/21/23 10:52: Sodium 136, Potassium 3.6, BUN 16, Creatinine 0.99, Glucose 88, Magnesium 2.1, Total Bilirubin 0.4, AST 15, ALT 19, Alkaline Phosphatase 59 Assessment And Plan - Current Problems (Diagnosis) (1) TIA (transient ischemic attack) Current Visit: Yes Status: Acute Plan: XT 8 years of age admitted to the emergency room with possible TIA problems started on Wednesday with imbalance feeling foggy disoriented apparently was exposed to a lot of stress she often suffers from vertigo takes medications for high blood pressure which includes losartan. Extensive work-up including brain MRI was negative there is no evidence of any stroke on the CAT scans of the neck cerebral vasculature chest x-ray was also clear. Lab work showed mild hyperlipidemia vital signs all stable. At the time of my evaluation at 1:30PM she was alert oriented cooperative responsive ambulating no focal peroneal cranial nerve deficit no weakness of the extremity and was ready to go home she was alert and oriented x3 daughter present at the bedside. She is to follow-up with Dr. 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
[2023-05-21 14:45] VITALS: BP 124/78; TEMP 98; O2SAT 97
--- NOTE | 2023-05-24 11:52 | EKG ---
Test Date: 2023-05-21 Test Time: 10:36:00 Pattern Stamper: JASON MEASUREMENT RESULTS: Intervals: Rate: 73 VA: 168 QRSD: 74 QT: 414 QTc: 456 [place]: P: 9 VA: 168 QRS: 22 T: 3 INTERPRETIVE STATEMENTS: Normal sinus rhythm Normal ECG No previous ECG available for comparison Electronically Signed On 05-24-23 11:47:11 CDT by Silverio Carrasquillo
== END 2023-05-21 14:13 | disposition home or self-care (01) ==
LOC: ER 10:20
DX: R41.82 Altered mental status, unspecified (principal); R53.83 Other fatigue; I10 Essential (primary) hypertension; Z88.0 Allergy status to penicillin; Z85.3 Personal history of malignant neoplasm of breast
CPT/HCPCS: 93005; 85025; 80048; 36415; 83735; 85610; 80061; 82565; 80076; 81003; 84484; 83880; 70450; 70496; 70498; 71045; 70551; 96374; 99285; Q9967; J8597; J7030